=== PATIENT | male | born 1975 | race Two or more races ===

== ENCOUNTER 2018-07-31 23:38 | Emergency (ER) | payer SELFPAY ==
[~2018-07-31] VITALS: Ht 167.6 cm; Wt 70.3 kg
[2018-07-31] MEDS ORDERED: NKM (23:53)
[2018-08-01 00:05] VITALS: BP 153/95
--- NOTE | 2018-08-01 00:16 | Emergency Room Report ---
History of Present Illness General Chief Complaint: General Complaint Source: Patient Present Illness HPI Patient presents with near syncope. He had dinner will want to have deserts and was walking back and felt his heart rate start to race. At that time he also felt short of breath. He felt that he was about to pass out and his vision became tunnel. He leaned up against a wall and it past somewhat but he still was not feeling back to his normal self. His hands got tingly and also cold. He denies nausea at that time. He was drinking alcohol during dinner. He denies doing other drugs at this time. He also smokes cigarettes on occasion. The patient is had episodes like this before. At times he was told that he had panic attacks. He's never had medication to treat these. Has a complicated cardiac history. 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 Apparently his ejection fraction is normal now he's not taking medication for congestive failure. Addition she states that he's had some mitral valve issues. He talks about regurgitation. 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 He's had lack of sleep. Allergies: Coded Allergies: No Known Allergies (Unverified , 07/31/18) Patient History Past Medical History: see triage record Social History: Reports: smoking, alcohol use Social History Narrative website programmer Reviewed Nursing Documentation: PMH: Agreed; PSxH: Agreed Nursing Documentation-PM Past Medical History: No History, Except For Review of Systems All Other Systems: negative except mentioned in HPI Physical Exam Vital Signs Date Time Temp Pulse Resp B/P (MAP) Pulse Ox O2 Delivery O2 Flow Rate FiO2 07/31/18 23:38 98.8 98 18 153/95 97 Room Air Sp02 EP Interpretation: reviewed, normal General Appearance: well appearing, no apparent distress, GCS 15 Head: normocephalic Eyes: bilateral eye PERRL, bilateral eye fluoroscene uptake, bilateral eye Scleral Injection ENT: moist mucus membranes Neck: supple Respiratory: lungs clear, normal breath sounds Cardiovascular #1: regular rate, rhythm Cardiovascular #2: 2+ radial (R) Gastrointestinal: normal inspection, normal bowel sounds, non tender, no mass, non-distended, scaphoid Musculoskeletal: back normal, gait/station normal, normal range of motion Neurologic: alert, oriented x3, grossly normal Psychiatric: anxious Skin: normal inspection, warm/dry Medical Decision Making Diagnostic Impression: Primary Impression: Near syncope Additional Impressions: Acute hyperventilation Unifocal PVCs ER Course Patient presents with near syncope and feeling of tachycardia. Differential includes arrhythmia, acute myocardial infarction, hyperglycemia, panic attack amongst others. Patient be evaluated EKG, and labs. The patient will be treated with IV hydration. EKG with sinus rhythm with frequent PVCs rate of 85. Labs remarkable for negative troponin. With observation the frequent PVCs were extinguished. He was improved with IV hydration. There are occasional PVCs and the patient was treated feel them. Patient's cardiac risk factors are negligible at this time aside from smoking. At this point the hospital observation is not indicated. Discussed findings and the need to abstain from tobacco and alcohol at this time. I offered the patient propranolol and discussed its usage. Patient doesn 't have a private physician. I advised him to find one and to take labs and EKG with him. He stated he is reluctant to try using propranolol. We discussed lifestyle changes that might help. The patient was advised to return if he had further symptoms. Laboratory Tests Test 08/01/18 00:24 White Blood Count 9.0 K/UL (4.8-10.8) Red Blood Count 5.42 M/UL (4.70-6.10) Hemoglobin 16.3 G/DL (14.2-18.0) Hematocrit 47.3 % (42.0-52.0) Mean Corpuscular Volume 87 FL (80-99) Mean Corpuscular Hemoglobin 30.0 PG (27.0-31.0) Mean Corpuscular Hemoglobin Concent 34.5 G/DL (32.0-36.0) Red Cell Distribution Width 11.4 % (11.6-14.8) L Platelet Count 304 K/UL (150-450) Mean Platelet Volume 5.9 FL (6.5-10.1) L Neutrophils (%) (Auto) 67.4 % (45.0-75.0) Lymphocytes (%) (Auto) 17.6 % (20.0-45.0) L Monocytes (%) (Auto) 7.2 % (1.0-10.0) Eosinophils (%) (Auto) 6.0 % (0.0-3.0) H Basophils (%) (Auto) 1.8 % (0.0-2.0) Urine Color Pale yellow Urine Appearance Clear Urine pH 6 (4.5-8.0) Urine Specific [place] 1.020 (1.005-1.035) Urine Protein Negative (NEGATIVE) Urine Glucose (UA) Negative (NEGATIVE) Urine Ketones Negative (NEGATIVE) Urine Blood 2+ (NEGATIVE) H Urine Nitrite Negative (NEGATIVE) Urine Bilirubin Negative (NEGATIVE) Urine Urobilinogen Normal MG/DL (0.0-1.0) Urine Leukocyte Esterase Negative (NEGATIVE) Urine RBC 2-4 /HPF (0 - 0) H Urine WBC 0 /HPF (0 - 0) Urine Squamous Epithelial Cells None /LPF (NONE/OCC) Urine Bacteria Occasional /HPF (NONE) Sodium Level 144 MMOL/L (136-145) Potassium Level 3.9 MMOL/L (3.5-5.1) Chloride Level 104 MMOL/L (98-107) Carbon Dioxide Level 31 MMOL/L (21-32) Anion Gap 9 mmol/L (5-15) Blood Urea Nitrogen 18 mg/dL (7-18) Creatinine 1.1 MG/DL (0.55-1.30) Estimate Glomerular Filtration Rate > 60 mL/min (>60) Glucose Level 92 MG/DL (74-106) Calcium Level 8.9 MG/DL (8.5-10.1) Total Bilirubin 0.2 MG/DL (0.2-1.0) Aspartate Amino Transferase (AST) 18 U/L (15-37) Alanine Aminotransferase (ALT) 32 U/L (12-78) Alkaline Phosphatase 62 U/L (46-116) Total Creatine Kinase 132 U/L (26-308) Troponin I 0.002 ng/mL (0.000-0.056) Total Protein 7.6 G/DL (6.4-8.2) Albumin 4.0 G/DL (3.4-5.0) Globulin 3.6 g/dL Albumin/Globulin Ratio 1.1 (1.0-2.7) Thyroid Stimulating Hormone (TSH) 1.360 uiU/mL (0.358-3.740) Urine Opiates Screen Negative (NEGATIVE) Acetaminophen Level < 2 MCG/ML (10-30) L Urine Barbiturates Screen Negative (NEGATIVE) Phencyclidine (PCP) Screen Negative (NEGATIVE) Urine Amphetamines Screen Negative (NEGATIVE) Urine Benzodiazepines Screen Negative (NEGATIVE) Urine Cocaine Screen Negative (NEGATIVE) Urine Marijuana (THC) Screen Negative (NEGATIVE) Serum Alcohol < 3 mg/dL EKG Diagnostic Results Rate: normal Rhythm: NSR ST Segments: no acute changes Rhythm Strip Diag. Results EP Interpretation: yes Rhythm: NSR, other - PVCs - unifocal Last Vital Signs Date Time Temp Pulse Resp B/P (MAP) Pulse Ox O2 Delivery O2 Flow Rate FiO2 08/01/18 02:50 98.8 18 153/95 97 Room Air 08/01/18 00:05 98 Status: improved Disposition: HOME, SELF-CARE Condition: Improved Scripts Propranolol Hcl* (INDERAL*) 10 Mg Tablet 10 MG ORAL BID PRN for palpitations or SOB, #6 TAB 0 Refills Prov: Aden Gonzáles MD 08/01/18 Aden Gonzáles MD Aug 01, 2018 00:16
[2018-08-01 00:49] LABS: APPEARANCE,URINE CLEAR; BILIRUBIN, URINE NEGATIVE (NEGATIVE); COLOR,URINE PALE YELLOW; GLUCOSE, URINE (UA) NEGATIVE (NEGATIVE); KETONES,URINE NEGATIVE (NEGATIVE); LEUKOCYTE ESTERASE ,URINE NEGATIVE (NEGATIVE); NITRITE,URINE NEGATIVE (NEGATIVE); PH,URINE 6 (4.5-8.0); PROTEIN,URINE NEGATIVE (NEGATIVE); UROBILINOGEN,URINE NORMAL MG/DL (0.0-1.0)
[2018-08-01 00:50] LABS: BASOPHILS % (AUTO) 1.8 % (0.0-2.0); HEMATOCRIT 47.3 % (42.0-52.0); HEMOGLOBIN 16.3 G/DL (14.2-18.0); LYMPHOCYTES % (AUTO) 17.6 % (20.0-45.0); MEAN CORPUSCULAR VOLUME 87 FL (80-99); MONOCYTES % (AUTO) 7.2 % (1.0-10.0); NEUTROPHILS % (AUTO) 67.4 % (45.0-75.0); PLATELET COUNT 304 K/UL (150-450); RED BLOOD COUNT 5.42 M/UL (4.70-6.10); RED CELL DISTRIBUTION WIDTH 11.4 % (11.6-14.8)
[2018-08-01 01:04] LABS: ANION GAP 9 mmol/L (5-15); BLOOD UREA NITROGEN 18 mg/dL (7-18); CALCIUM 8.9 MG/DL (8.5-10.1); CARBON DIOXIDE 31 MMOL/L (21-32); CHLORIDE 104 MMOL/L (98-107); CREATININE 1.1 MG/DL (0.55-1.30); POTASSIUM 3.9 MMOL/L (3.5-5.1); SODIUM 144 MMOL/L (136-145)
[2018-08-01 01:23] LABS: ALANINE AMINOTRANSFERASE 32 U/L (12-78); ALBUMIN/GLOBULIN RATIO 1.1 (1.0-2.7); ALKALINE PHOSPHATASE 62 U/L (46-116); ASPARTATE AMINO TRANSFERASE 18 U/L (15-37); BILIRUBIN,TOTAL 0.2 MG/DL (0.2-1.0); CREATINE KINASE 132 U/L (26-308)
[2018-08-01] MEDS ORDERED: PROPRANOLOL HCL10 MG ORAL (02:47)
[2018-08-01 02:50] VITALS: BP 153/95
== END 2018-08-01 03:10 | disposition home or self-care (01) ==
LOC: EMR 23:55
DX: R55 Syncope and collapse (principal); R06.4 Hyperventilation; F17.210 Nicotine dependence, cigarettes, uncomplicated; I49.3 Ventricular premature depolarization
CPT/HCPCS: 36415; 80053; 80307; 81003; 82550; 82962; 84443; 84484; 85025; 93005; 96360; 99284; G0480; 80329